=== PATIENT | male | born 1975 | race Caucasian/White ===

== ENCOUNTER → 2016-11-05 | Outpatient (CLI) | payer SELFPAY ==
[~2016-11-05] MED LIST: ADVIL LIQUI-GE200 MG PO; ALLEGRA-D 12 HO1 TE1 PO; CEPHALEXIN500 M1 PO; CLEOCIN HCL300 MG PO; PERCOCET 325 MG1 TA2 PO
== END ==
LOC: LAB 16:09
DX: R05 Cough (principal); B33.0 Epidemic myalgia; R50.9 Fever, unspecified

== ENCOUNTER 2020-02-29 15:13 | Emergency (ER) | payer SELFPAY ==
[~2020-02-29] VITALS: Ht 177.8 cm; Wt 77.3 kg
[2020-02-29] MEDS ORDERED: TYLENOL EXTRA500 M2 PO (15:25)
[2020-02-29 16:10] LABS: HEMATOCRIT 39.9 % (42.0-52.0); HEMOGLOBIN 13.7 g/dL (13.5-18.0); MEAN CELL VOLUME 82 fl (78-100); MEAN CORPUSCULAR HEMOGLOBIN 28 pg (27-31); MEAN CORPUSCULAR HGB CONC 34 g/dL (33-37); MEAN PLATELET VOLUME 9.1 fl (7.4-10.4); PLATELET COUNT 384 K/mm3 (130-400); RED BLOOD COUNT 4.84 M/mm3 (4.20-5.60); RED CELL DISTRIBUTION WIDTH 13.9 % (11.5-14.5)
[2020-02-29 16:12] LABS: ALBUMIN 3.9 g/dL (3.5-5.0)
[2020-02-29 16:13] LABS: POTASSIUM 3.8 mmol/L (3.5-5.1)
[2020-02-29 16:14] LABS: CALCIUM 9.5 mg/dL (8.3-10.5)
[2020-02-29 16:15] LABS: TOTAL PROTEIN 7.3 g/dL (6.4-8.3)
[2020-02-29 16:17] LABS: TOTAL BILIRUBIN 0.7 mg/dL (0.2-1.2)
[2020-02-29 16:24] LABS: WHITE BLOOD COUNT 20.4 K/mm3 (4.8-10.8)
[2020-02-29 16:36] LABS: LYMPHOCYTE 6 % (20-51); MONOCYTE 6 % (3-10); NEUTROPHILS 87 % (42-75)
[2020-02-29 17:54] VITALS: BP 129/88
== END 2020-02-29 18:43 | disposition short-term general hospital (02) ==
LOC: ED 15:13
PROVIDERS: Nurse Practitioner Family
DX: K37 Unspecified appendicitis (principal); E16.2 Hypoglycemia, unspecified; J45.909 Unspecified asthma, uncomplicated; Z88.1 Allergy status to other antibiotic agents; Z88.0 Allergy status to penicillin
CPT/HCPCS: J0744; J1885; J2270; J3490; J7030; J7121; Q9967